=== PATIENT | female | born 1975 | race Caucasian/White ===

== ENCOUNTER 2016-11-19 21:58 | Emergency (ER) | payer OTHER | END 2016-11-19 23:32 | disposition left against medical advice (07) | LOC: ER1 21:58 | DX: Z53.21 Procedure and treatment not carried out due to patient leaving prior to being seen by health care provider (principal) ==

== ENCOUNTER 2021-05-23 07:05 | Emergency (ER) | payer BC ==
[~2021-05-23] VITALS: Ht 170.2 cm; Wt 83.0 kg
== END 2021-05-23 10:15 | disposition home or self-care (01) ==
LOC: ER1 07:05
DX: U07.1 COVID-19 (principal); Z23 Encounter for immunization; F17.200 Nicotine dependence, unspecified, uncomplicated
CPT/HCPCS: 99283; M0245

== ENCOUNTER 2022-01-02 15:52 | Emergency (ER) | payer BC ==
[2022-01-02 16:42] LABS: HEMOGLOBIN 14.1 gm/dl (12.3-15.3); RED BLOOD COUNT 4.77 M/UL (4.00-5.10); WHITE BLOOD COUNT 10.4 K/UL (4.5-11.0)
[2022-01-02 17:06] LABS: BUN/CREATININE RATIO 12 (0-10)
[2022-01-02] MEDS ORDERED: VISTARIL 50 MG50 MG PO (20:13)
== END 2022-01-02 20:40 | disposition home or self-care (01) ==
LOC: ER1 15:52
PROVIDERS: Emergency Medicine
DX: R07.89 Other chest pain (principal); Z20.822 Contact with and (suspected) exposure to COVID-19; E78.5 Hyperlipidemia, unspecified; F17.200 Nicotine dependence, unspecified, uncomplicated; Z79.899 Other long term (current) drug therapy
CPT/HCPCS: 71045; 80053; 82550; 82553; 84484; 85025; 85379; 99285; Q0177; U0002